=== PATIENT | female | born 2000 | race Caucasian/White ===

== ENCOUNTER → 2022-02-22 15:35 | Outpatient (BNVA) | payer OTHER, SELFPAY | PROVIDERS: Visit Provider Registered Nurse | DX: Z02.1 Encounter for pre-employment examination (principal) | CPT/HCPCS: 80307 ==

== ENCOUNTER 2022-04-16 13:31 | Emergency (ER) | payer MEDICAID, SELFPAY ==
[2022-04-16 13:43] VITALS: PULSE 73; RESP 14; TEMP 36.8; O2SAT 98
[2022-04-16 13:48] VITALS: BP 128/78
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
[2022-04-16 15:24] VITALS: PULSE 79; RESP 16; O2SAT 94
== END 2022-04-16 15:25 | disposition home or self-care (01) ==
PROVIDERS: Emergency Provider Physician Assistant
DX: S16.1XXA Strain of muscle, fascia and tendon at neck level, initial encounter (principal); V89.2XXA Person injured in unspecified motor-vehicle accident, traffic, initial encounter
CPT/HCPCS: 72040; 99283

== ENCOUNTER → 2022-05-28 11:07 | Outpatient (BNVA) | payer MEDICAID, SELFPAY | PROVIDERS: Visit Provider Family Medicine | DX: G43.909 Migraine, unspecified, not intractable, without status migrainosus (principal) | CPT/HCPCS: 80053; 84439; 84443; 85025 ==

== ENCOUNTER → 2022-07-15 12:00 | Outpatient (BNVA) | payer MEDICAID, SELFPAY | PROVIDERS: PCP Registered Nurse; Visit Provider Nurse Practitioner Women's Health | DX: N92.0 Excessive and frequent menstruation with regular cycle (principal); N94.6 Dysmenorrhea, unspecified; R01.1 Cardiac murmur, unspecified | CPT/HCPCS: 84439; 84443; 85025; 88175 ==

== ENCOUNTER → 2022-07-16 11:30 | Outpatient (BNVA) | payer MEDICAID, SELFPAY | PROVIDERS: PCP Registered Nurse; Visit Provider Nurse Practitioner Women's Health | DX: N92.0 Excessive and frequent menstruation with regular cycle (principal) | CPT/HCPCS: 85025 ==

== ENCOUNTER → 2022-12-07 15:30 | Outpatient (BNVA) | payer MEDICAID, SELFPAY | PROVIDERS: PCP Registered Nurse; Visit Provider Nurse Practitioner Women's Health | DX: N94.6 Dysmenorrhea, unspecified (principal) | CPT/HCPCS: 76830 ==

== ENCOUNTER → 2024-01-05 12:42 | Outpatient (BNVA) | payer OTHER, SELFPAY | PROVIDERS: PCP Registered Nurse; Visit Provider Nurse Practitioner Women's Health | DX: N64.4 Mastodynia (principal); N64.52 Nipple discharge | CPT/HCPCS: 84146; 84439; 84443; 84702; 85025 ==

== ENCOUNTER → 2024-01-24 10:27 | Outpatient (BNVA) | payer OTHER, SELFPAY | PROVIDERS: PCP Registered Nurse; Visit Provider Nurse Practitioner Women's Health | DX: D64.9 Anemia, unspecified (principal); N92.0 Excessive and frequent menstruation with regular cycle; K90.9 Intestinal malabsorption, unspecified | CPT/HCPCS: 82607; 82728; 82746; 83550 ==

== ENCOUNTER → 2024-03-09 10:24 | Outpatient (BNVA) | payer OTHER, SELFPAY | PROVIDERS: PCP Registered Nurse; Visit Provider Nurse Practitioner Women's Health | DX: N92.0 Excessive and frequent menstruation with regular cycle (principal); K90.9 Intestinal malabsorption, unspecified; R53.83 Other fatigue; D64.9 Anemia, unspecified | CPT/HCPCS: 82306; 82728; 83550; 85025 ==

== ENCOUNTER → 2024-04-17 08:37 | Outpatient (BNVA) | payer OTHER, SELFPAY | PROVIDERS: PCP Registered Nurse; Visit Provider Nurse Practitioner Women's Health | DX: N92.6 Irregular menstruation, unspecified (principal); N92.0 Excessive and frequent menstruation with regular cycle | CPT/HCPCS: 76830 ==

== ENCOUNTER 2024-04-24 00:48 | Emergency (ER) | payer OTHER, SELFPAY ==
[2024-04-24 00:54] VITALS: BP 115/75; PULSE 74; RESP 18; TEMP 36.7; O2SAT 98; BMI 32.4
--- NOTE | 2024-04-24 01:04 | W.ED.ALLEREA ---
HPI - Allergic Reaction General: Chief complaint: Allergic Reaction Stated complaint: Rash Time Seen by Provider: 04/24/24 01:00 History of Present Illness: HPI narrative: Patient presents to the ER with allergic reaction rash. Patient has blotchy hives generalized throughout her whole body. It is very pruritic itchy. She said he started on her bottom spread to her abdomen legs face. She has no allergies that she knows of no thing in her house is changed. She has never had a thing like this before. Patient says she cannot swallow pills of any kind and therefore wants all medicine to be liquid or IV. Related Data Home Medications ?Medication ?Instructions ?Recorded ?Confirmed faokkayguxlo-xitu-yqytzbee 3 ml PO DAILY 03/09/24 03/29/24 Previous Rx's ?Medication ?Instructions ?Recorded cholecalciferol (vitamin D3) 1,250 50,000 unit PO .weekly 8 weeks #8 03/13/24 mcg (50,000 unit) capsule caps ferrous sulfate 325 mg (65 mg 325 mg PO TID #90 tabs 03/13/24 iron) tablet cetirizine 10 mg tablet 10 mg PO DAILY PRN nasal 03/29/24 congestion #30 tabs fluticasone propionate 50 2 spray intranasal DAILY #16 grams 03/29/24 mcg/actuation nasal spray,suspension (Flonase Allergy Relief) prednisone 50 mg tablet 50 mg PO DAILY #5 tabs 04/24/24 Allergies Allergy/AdvReac Type Severity Reaction Status Date / Time No Known Allergies Allergy Verified 03/29/24 10:37 Review of Systems General: Reports: 10 or more systems reviewed and unremarkable except in HPI and below PFSH ED PFSH: Medical History No pertinent past medical history neghx: htn,dm,thyroid,dvt/pe PCP: Dr. Castillo Pre-eclampsia Irregular heartbeat Surgical History History of 2 Family History Grandmother Lung cancer Maternal- lungs that radiated Mother Diabetes Hypertension Stroke Father Hypertension Stroke Other Clotting disorder Denies family history of Colon cancer Ovarian cancer CAD (coronary artery disease) Dementia Heart disease Hyperlipidemia Psychiatric illness Chronic kidney disease (CKD) Breast cancer Anesthesia complication Bleeding disorder Lung disease Uterine cancer Thyroid disease Social History Smoking and tobacco/nicotine status: never used tobacco/nicotine Female Reproductive History: Date of last menstrual period: 04/10/24 Para: 2 Physical Exam Const: COMMON NORMALS: no acute distress, average body habitus, patient oriented x3, no limitations, healthy appearing, alert and well nourished HENMT: COMMON NORMALS: normocephalic, atraumatic, hearing grossly normal bilaterally, external ears normal, Normal external nose present, moist oral mucous membranes and oropharynx normal HEAD & SCALP: normocephalic and atraumatic NOSE: Normal external nose present EXTERNAL EAR: Yes external ears normal Eye: COMMON NORMALS: Equal, round and reactive pupils present, EOMs intact bilaterally, conjunctivae normal and no scleral icterus CONJUNCTIVA: Yes conjunctivae normal PUPIL: Yes Equal, round and reactive pupils present Neck/C-Spine: COMMON NORMALS: full ROM, no lymphadenopathy, supple, no meningeal signs, no JVD and Thyroid normal THYROID: Thyroid normal Chest: COMMONS NORMALS: normal inspection of the chest and normal palpation of entire chest wall Resp: COMMON NORMALS: normal respiratory effort, No retractions, No use of accessory muscles and clear to auscultation bilaterally AUSCULTATION: clear to auscultation bilaterally Cardio: COMMON NORMALS: no JVD, regular rate, regular rhythm, S1 normal heart sound present, S2 normal heart sound present, No gallops present (Cardio), No clicks present (Cardio), No murmurs present (Cardio) and No rub (Cardio) RATE: regular rate RHYTHM: regular rhythm HEART SOUNDS: S1 normal heart sound present and S2 normal heart sound present GI: COMMON NORMALS: Normal to inspection, nondistended, normoactive bowel sounds present, Soft to palpation, non-tender, No hepatosplenomegaly present and no masses PALPATION: Yes Soft to palpation and Yes No hepatosplenomegaly present Neuro: COMMON NORMALS: patient oriented x3 SENSORIUM/ORIENTATION: Yes alert MENINGEAL SIGNS: Yes no meningeal signs Skin: NARRATIVE SKIN EXAM: Blotchy pruritic hive-like generalized rash Course Vital Signs: Vital signs: Vital Signs Temperature 98.0 F 04/24/24 00:54 Pulse Rate 67 04/24/24 02:00 Respiratory Rate 16 04/24/24 02:00 Blood Pressure 116/75 04/24/24 02:00 Pulse Oximetry 98 04/24/24 02:00 Oxygen Delivery Me thod Room Air 04/24/24 02:00 MDM - Allergic Reaction Medical Decision Making Patient stated she has to go home and take care of her toddler so she would prefer not to be overly sedated. We did not give her Benadryl but we did give her Pepcid and Solu-Medrol. Patient's rash was almost resolved. Patient be discharged home. Medical Records I reviewed the patient's medical records. Lab Data I reviewed the patient's lab results. All radiology interpretation(s) finalized by discharge Discharge Plan Discharge Patient Disposition: Home Clinical Impression: Urticaria, Allergic reaction Condition: Stable Prescriptions: New prednisone 50 mg tablet 50 mg PO DAILY Qty: 5 0RF No Action cetirizine 10 mg tablet 10 mg PO DAILY PRN (Reason: nasal congestion) Qty: 30 0RF fluticasone propionate [Flonase Allergy Relief] 50 mcg/actuation spray,suspension 2 spray intranasal DAILY Qty: 16 0RF Rx Instructions: administer into each nostril ukuoojwrwabh-eeds-bhnxewnj Liquid 3 ml PO DAILY ferrous sulfate 325 mg (65 mg iron) tablet 325 mg PO TID Qty: 90 3RF Rx Instructions: take with orange juice cholecalciferol (vitamin D3) 1,250 mcg (50,000 unit) capsule 50,000 unit PO .weekly 56 Days Qty: 8 0RF Discharge Orders: Discharge ED (Routine); Ordered 04/24/24 Ordered By: Americo Robb Referrals: Shoaib Garnica FNP [Primary Care Provider] - 1 week Patient Instructions: Urticaria Activity Restrictions/Additional Instructions: Activity restrictions/additional instructions: Thank you for choosing [facility] for your healthcare needs today. Please realize that you were seen in the emergency department and that we are providing you with an emergency medical screening exam and this may not be a complete and all exclusive of all testing and/or medical workup we may need to determine your element or severity of your illness. It is very important that you follow-up as instructed with your primary care provider or specialist for the additional evaluation and to discuss your medical treatment plan. You may return to the emergency department should you have concerns or if your condition changes or worsens in any way. Print Language: Djiboutian Coding Level of Care Code ED Hosiery Mender for Fidel Cervantes
[2024-04-24] MEDS: famotidine 20 mg/2 mL INJ 40 MG IVP (01:21)
[2024-04-24] MEDS: methylPREDNISolone sod succ 125 mg/2 mL INJ IVP (01:23)
[2024-04-24 01:24] VITALS: BP 129/68; PULSE 84; RESP 16; O2SAT 98
[2024-04-24 01:30] VITALS: BP 129/68; PULSE 77; RESP 16; O2SAT 98
[2024-04-24 02:00] VITALS: BP 116/75; PULSE 67; RESP 16; O2SAT 98
[2024-04-24 02:30] VITALS: BP 112/75; PULSE 80; RESP 17; O2SAT 97
[2024-04-24 02:47] VITALS: BP 112/75; PULSE 77; O2SAT 97
== END 2024-04-24 02:53 | disposition home or self-care (01) ==
PROVIDERS: Emergency Provider Emergency Medicine; PCP Registered Nurse
DX: L50.9 Urticaria, unspecified (principal); T78.40XA Allergy, unspecified, initial encounter; X58.XXXA Exposure to other specified factors, initial encounter
CPT/HCPCS: 36415; 82306; 96375; 99284; J2919; J3490

== ENCOUNTER → 2024-08-06 11:19 | Outpatient (BNVA) | payer OTHER, SELFPAY | PROVIDERS: PCP Registered Nurse; Visit Provider Nurse Practitioner Women's Health | DX: D50.0 Iron deficiency anemia secondary to blood loss (chronic) (principal); E55.9 Vitamin D deficiency, unspecified | CPT/HCPCS: 82306; 85025 ==

== ENCOUNTER → 2024-08-31 12:47 | Outpatient (BNVA) | payer OTHER, SELFPAY | PROVIDERS: PCP Registered Nurse; Visit Provider Nurse Practitioner Women's Health | DX: N92.0 Excessive and frequent menstruation with regular cycle (principal); R53.83 Other fatigue | CPT/HCPCS: 82728; 83540 ==

== ENCOUNTER 2024-10-01 08:30 | Oncology outpatient (recurring) (ONCR) | payer OTHER, SELFPAY ==
[2024-10-01] MEDS: diphenhydrAMINE 50 mg/mL SDV 1mL 25 MG IVP (09:11)
[2024-10-01] MEDS: iron dextran 1,000 MG in sodium chloride 0.9% 1,000 ML 250.75 MG IV (11:33)
[2024-10-01 15:55] VITALS: BP 116/72; PULSE 76; RESP 16; TEMP 36.6; O2SAT 99
== END 2024-10-04 23:59 | disposition home or self-care (01) ==
PROVIDERS: PCP Registered Nurse; Visit Provider Internal Medicine Medical Oncology
DX: Z53.9 Procedure and treatment not carried out, unspecified reason; D50.9 Iron deficiency anemia, unspecified; Z79.899 Other long term (current) drug therapy
CPT/HCPCS: 96365; 96366; 96375; J1200; J1750; J7030; J7040; J9999

== ENCOUNTER 2024-11-13 14:31 | Oncology outpatient (recurring) (ONCR) | payer OTHER, SELFPAY ==
[2024-11-13 14:48] LABS: Hematocrit 40.5 % (36-47); Hemoglobin 13.50 g/dL (11.27-16.99); Mean Corpuscular HGB Conc 33.3 g/dL (30-55); Mean Corpuscular Hemoglobin 28.6 pg (27-33); Mean Corpuscular Volume 85.8 fl (85-98); Nucleated Red Blood Cells % 0 %; Platelet Count 376 10^3/cmm (157-399); Red Blood Count 4.72 10^6/uL (3.85-5.65); White Blood Count 5.40 10^3/uL (3.29-11.43)
[2024-11-13 15:13] LABS: Alanine Aminotransferase 12 U/L (0-33); Albumin Level 4.6 g/dL (3.5-5.2); Alkaline Phosphatase 73 U/L (35-105); Anion Gap 11.1 (5-19); Aspartate Amino Transferase 13 U/L (0-32); Blood Urea Nitrogen 10 mg/dL (6-20); Calcium 9.2 mg/dL (8.5-10.5); Carbon Dioxide 27 mmol/L (22-29); Chloride 105 mmol/L (98-107); Ferritin 153 ng/mL (15-150); Globulin 2.2 g/dL (1.3-4.6); Glucose 84 mg/dL (65-115); Iron 113 ug/dL (37-145); Osmolality Calculated 286 mOsm/kg (285-295); Potassium 4.1 mmol/L (3.5-5.1); Sodium 139 mmol/L (136-145); Total Iron Binding Capacity 265 mcg/dl; Total Protein 6.8 g/dL (6.6-8.7); Unsaturated Iron Binding 152 ug/dL (112-347)
== END 2024-12-04 23:59 | disposition home or self-care (01) ==
PROVIDERS: PCP Registered Nurse; Visit Provider Internal Medicine Medical Oncology
DX: D50.9 Iron deficiency anemia, unspecified (principal)
CPT/HCPCS: 36415; 80053; 82728; 83540; 83550; 85025

== ENCOUNTER 2025-01-30 13:14 | Oncology outpatient (recurring) (ONCR) | payer OTHER, SELFPAY ==
[2025-01-30 13:44] LABS: Hematocrit 40.0 % (36-47); Hemoglobin 13.60 g/dL (11.27-16.99); Mean Corpuscular HGB Conc 34.0 g/dL (30-55); Mean Corpuscular Hemoglobin 29.7 pg (27-33); Mean Corpuscular Volume 87.3 fl (85-98); Nucleated Red Blood Cells % 0 %; Platelet Count 389 10^3/cmm (157-399); Red Blood Count 4.58 10^6/uL (3.85-5.65); White Blood Count 7.33 10^3/uL (3.29-11.43)
[2025-01-30 14:02] LABS: Alanine Aminotransferase 11 U/L (0-33); Albumin Level 4.5 g/dL (3.5-5.2); Alkaline Phosphatase 68 U/L (35-105); Anion Gap 15.9 (5-19); Aspartate Amino Transferase 12 U/L (0-32); Blood Urea Nitrogen 11 mg/dL (6-20); Calcium 9.2 mg/dL (8.5-10.5); Carbon Dioxide 23 mmol/L (22-29); Chloride 106 mmol/L (98-107); Ferritin 70 ng/mL (15-150); Globulin 2.3 g/dL (1.3-4.6); Glucose 98 mg/dL (65-115); Iron 58 ug/dL (37-145); Osmolality Calculated 291 mOsm/kg (285-295); Potassium 3.9 mmol/L (3.5-5.1); Sodium 141 mmol/L (136-145); Total Iron Binding Capacity 283 mcg/dl; Total Protein 6.8 g/dL (6.6-8.7); Unsaturated Iron Binding 225 ug/dL (112-347)
== END 2025-02-03 23:59 | disposition home or self-care (01) ==
LOC: ONCMED 13:15
PROVIDERS: Nurse Practitioner; PCP Registered Nurse; Visit Provider Internal Medicine Medical Oncology
DX: D50.9 Iron deficiency anemia, unspecified (principal); Z53.9 Procedure and treatment not carried out, unspecified reason
CPT/HCPCS: 36415; 80053; 82728; 83540; 83550; 83615; 85025

== ENCOUNTER 2025-02-12 14:20 | Oncology outpatient (recurring) (ONCR) | payer BC, SELFPAY ==
[2025-02-12 14:36] LABS: Hematocrit 39.5 % (36-47); Hemoglobin 13.50 g/dL (11.27-16.99); Mean Corpuscular HGB Conc 34.2 g/dL (30-55); Mean Corpuscular Hemoglobin 30.0 pg (27-33); Mean Corpuscular Volume 87.8 fl (85-98); Nucleated Red Blood Cells % 0 %; Platelet Count 344 10^3/cmm (157-399); Red Blood Count 4.50 10^6/uL (3.85-5.65); White Blood Count 8.41 10^3/uL (3.29-11.43)
[2025-02-12 15:02] LABS: Alanine Aminotransferase 13 U/L (0-33); Albumin Level 4.6 g/dL (3.5-5.2); Alkaline Phosphatase 62 U/L (35-105); Anion Gap 12.7 (5-19); Aspartate Amino Transferase 17 U/L (0-32); Blood Urea Nitrogen 11 mg/dL (6-20); Calcium 9.5 mg/dL (8.5-10.5); Carbon Dioxide 26 mmol/L (22-29); Chloride 102 mmol/L (98-107); Globulin 2.1 g/dL (1.3-4.6); Glucose 128 mg/dL (65-115); Osmolality Calculated 285 mOsm/kg (285-295); Potassium 3.7 mmol/L (3.5-5.1); Sodium 137 mmol/L (136-145); Total Protein 6.7 g/dL (6.6-8.7)
[2025-02-12 15:18] LABS: Ferritin 65 ng/mL (15-150); Iron 60 ug/dL (37-145); Total Iron Binding Capacity 294 mcg/dl; Unsaturated Iron Binding 234 ug/dL (112-347)
== END 2025-03-06 23:59 | disposition home or self-care (01) ==
PROVIDERS: Nurse Practitioner; PCP Registered Nurse; Visit Provider Internal Medicine Medical Oncology
DX: D50.9 Iron deficiency anemia, unspecified (principal)
CPT/HCPCS: 36415; 80053; 82728; 83540; 83550; 85025